=== PATIENT | male | born 1950 | race Hispanic/Latino ===

== ENCOUNTER 2017-07-25 01:02 | Observation (INO) | payer OTHER, MEDICARE ==
[~2017-07-25] VITALS: Ht 177.8 cm; Wt 88.5 kg
[2017-07-25] MEDS ORDERED: ONDANSETRON HCL 4 MG/2 ML VIAL ONE ×2 (01:34→17:36)
[2017-07-25] MEDS ORDERED: ASPIRIN 325 MG TABLET ONE (01:34)
[2017-07-25] MEDS ORDERED: HYDRALAZINE HCL 20 MG/ML VIAL ONE (01:34)
[2017-07-25] MEDS ORDERED: MORPHINE SULFATE 2 MG/ML 1ML SYG ONE ×2 (01:34→17:36)
[2017-07-25 01:37] LABS: BASOPHILS % (AUTO) 2.9 % (0.0-5.0); LYMPHOCYTES % (AUTO) 13.7 % (21.0-51.0); MEAN CORPUSCULAR HEMOGLOBIN 31.6 pg (27.0-33.0); MEAN CORPUSCULAR HGB CONC 34.2 g/dL (32.0-36.0); MEAN CORPUSCULAR VOLUME 92.5 fL (79-99); MONOCYTES % (AUTO) 5.6 % (3.0-13.0); NEUTROPHILS % (AUTO) 76.8 % (40.0-77.0); PLATELET COUNT (AUTO) 231 K/uL (130-400); RED BLOOD CELL COUNT(AUTO) 4.65 MIL/uL (4.50-6.20); RED CELL DISTRIBUTION WIDTH 13.3 % (11.0-15.5); WHITE BLOOD COUNT (AUTO) 8.4 K/uL (4.8-10.8)
[2017-07-25 01:51] LABS: CREATININE 1.2 mg/dL (0.5-1.5)
[2017-07-25 01:56] LABS: ALBUMIN 4.2 g/dL (3.5-5.0); BILIRUBIN,TOTAL 0.6 mg/dL (0.2-1.0); TOTAL PROTEIN, SERUM 8.2 g/dL (6.0-8.3)
[2017-07-25] MEDS ORDERED: LEVOFLOXACIN 750 MG/D5W 150 ML 150 ML ONE (02:40)
[2017-07-25] MEDS ORDERED: POTASSIUM CHLORIDE 20MEQ/100ML 100 ML IV PRN (07:30)
[2017-07-25] MEDS ORDERED: POTASSIUM CHLORIDE 10% ELIXIR 20 MEQ/15 ML UDCUP PO PRN (07:30)
[2017-07-25] MEDS ORDERED: LIDOCAINE HCL-MPF 1% 2ML VIAL IVP PRN (07:30)
[2017-07-25] MEDS ORDERED: HYDRALAZINE HCL 20 MG/ML VIAL IV PRN (07:30)
[2017-07-25] MEDS ORDERED: POTASSIUM CHLORIDE 20 MEQ ERTAB PO PRN (07:30)
[2017-07-25] MEDS ORDERED: ONDANSETRON HCL 4 MG/2 ML VIAL IV PRN (07:30)
[2017-07-25] MEDS ORDERED: MORPHINE SULFATE 4 MG/1ML SYG IV PRN (07:30)
[2017-07-25] MEDS ORDERED: SODIUM CHLORIDE 0.9% 1000ML 1,000 ML IV ONE (10:03)
[2017-07-25] MEDS ORDERED: NITROGLYCERIN 1GM/1 INCH PACKET TD ONE (10:03)
[2017-07-25] MEDS ORDERED: FAMOTIDINE/PF 20 MG/2 ML VIAL IV ONE (10:04)
[2017-07-25] MEDS ORDERED: METOPROLOL TARTRATE 25 MG TAB ONE (10:12)
[2017-07-25] MEDS ORDERED: INSULIN HUMULIN R 100 UNIT/ML 3ML ONE (10:13)
[2017-07-25] MEDS ORDERED: MEROPENEM 1 GM VIAL ONE (12:24)
[2017-07-25] MEDS ORDERED: MEROPENEM 1 GM VIAL IVP SCH (13:00)
[2017-07-25] MEDS ORDERED: ZOSYN 3.375GM+NS 50ML 50 ML IV SCH (13:00)
[2017-07-25 13:46] LABS: CREATINE KINASE MB 2.3 ng/mL (0.5-3.6); TROPONIN I 0.31 ng/mL (0.00-0.06)
[2017-07-25] MEDS ORDERED: IOPAMIDOL-370 100 ML VIAL IV ONE (14:02)
[2017-07-25] MEDS ORDERED: ASPIRIN 325MG EC TAB 325 MG TABLET.DR PO SCH (14:45)
[2017-07-25] MEDS: NITROGLYCERIN 1GM/1 INCH PACKET TD SCH ×2 (15:30→21:46)
[2017-07-25] MEDS: INSULIN HUMULIN R 100 UNIT/ML 3ML SQ SCH ×2 (16:30→20:42)
[2017-07-25] MEDS: FAMOTIDINE/PF 20 MG/2 ML VIAL IV SCH ×2 (17:38→20:15)
[2017-07-25] MEDS: METOPROLOL TARTRATE 25 MG TAB PO SCH ×2 (17:38→20:15)
[2017-07-25] MEDS: SODIUM CHLORIDE 0.9% 1000ML 1,000 ML IV SCH ×2 (17:39→20:15)
[2017-07-25 18:00] VITALS: BP 151/96
[2017-07-25] MEDS ORDERED: AMOX1TAB16 PO (18:59)
[2017-07-25] MEDS ORDERED: ATOR10 PO (18:59)
[2017-07-25] MEDS ORDERED: CLOP75TA32 PO (18:59)
[2017-07-25] MEDS ORDERED: PANT20TA12 PO (18:59)
[2017-07-25] MEDS ORDERED: AEC81 PO (18:59)
[2017-07-25] MEDS ORDERED: CILO100T PO (18:59)
[2017-07-25] MEDS ORDERED: METF10004 PO (18:59)
[2017-07-25] MEDS ORDERED: INSU100I21 SQ ×2 (18:59)
[2017-07-25] MEDS ORDERED: METO-408 PO (18:59)
[2017-07-25] MEDS ORDERED: LOSA100T29 PO (18:59)
[2017-07-25 19:06] VITALS: BP 164/98
[2017-07-25 20:17] LABS: CREATINE KINASE MB 2.2 ng/mL (0.5-3.6); TROPONIN I 0.32 ng/mL (0.00-0.06)
[2017-07-25] MEDS: MEROPENEM 1 GM VIAL IVP SCH (21:45)
[2017-07-25] MEDS: MORPHINE SULFATE 2 MG/ML 1ML SYG IV PRN (21:56)
[2017-07-25 23:10] VITALS: BP 133/81
[2017-07-26 03:01] VITALS: BP 138/86
[2017-07-26] MEDS: MORPHINE SULFATE 2 MG/ML 1ML SYG IV PRN (03:03)
[2017-07-26 03:56] LABS: HEMATOCRIT 40.7 % (42-54); MEAN CORPUSCULAR HEMOGLOBIN 32.2 pg (27.0-33.0); MEAN CORPUSCULAR HGB CONC 34.9 g/dL (32.0-36.0); MEAN CORPUSCULAR VOLUME 92.3 fL (79-99); PLATELET COUNT (AUTO) 236 K/uL (130-400); RED BLOOD CELL COUNT(AUTO) 4.41 MIL/uL (4.50-6.20); RED CELL DISTRIBUTION WIDTH 13.5 % (11.0-15.5); WHITE BLOOD COUNT (AUTO) 7.8 K/uL (4.8-10.8)
[2017-07-26 04:08] LABS: POTASSIUM 3.8 mmol/L (3.5-5.1)
[2017-07-26] MEDS: MEROPENEM 1 GM VIAL IVP SCH (05:25)
[2017-07-26] MEDS: NITROGLYCERIN 1GM/1 INCH PACKET TD SCH ×2 (05:26→17:52)
[2017-07-26] MEDS: INSULIN HUMULIN R 100 UNIT/ML 3ML SQ SCH (05:26)
[2017-07-26 07:42] VITALS: BP 143/81
[2017-07-26] MEDS ORDERED: ASPIRIN 81 MG EC TAB PO SCH (09:00)
[2017-07-26] MEDS ORDERED: CLOPIDOGREL BISULFATE 75 MG TAB PO SCH (09:00)
[2017-07-26] MEDS ORDERED: LOSARTAN 100 MG TABLET PO SCH (09:00)
[2017-07-26] MEDS ORDERED: ENOXAPARIN SODIUM 40 MG/0.4 ML SYRINGE SQ SCH (09:00)
[2017-07-26] MEDS ORDERED: CILOSTAZOL 100 MG TAB PO SCH (09:00)
[2017-07-26] MEDS ORDERED: METOPROLOL TARTRATE 25 MG TAB PO SCH (09:15)
[2017-07-26 11:38] VITALS: BP 155/89
[2017-07-26 17:43] VITALS: BP 193/118
[2017-07-26] MEDS: METOPROLOL TARTRATE 25 MG TAB PO SCH (17:51)
[2017-07-26 18:33] VITALS: BP 140/70
[2017-07-26] MEDS ORDERED: ATORVASTATIN CALCIUM 20 MG TABLET PO SCH (21:00)
[2017-07-27] MEDS ORDERED: INSULIN GLARGINE 100 UNITS/ML 10 ML VIAL SQ SCH (07:30)
== END 2017-07-26 19:21 | disposition home or self-care (01) ==
LOC: EDH 01:02 → EDHIP 03:30 → 2AH 17:56
PROVIDERS: ADMIT Internal Medicine; ATTEND Internal Medicine
DX: R07.89 Other chest pain (principal); I25.10 Atherosclerotic heart disease of native coronary artery without angina pectoris; E11.9 Type 2 diabetes mellitus without complications; I10 Essential (primary) hypertension; E78.5 Hyperlipidemia, unspecified; R10.11 Right upper quadrant pain; Z82.49 Family history of ischemic heart disease and other diseases of the circulatory system; Z95.1 Presence of aortocoronary bypass graft
CPT/HCPCS: 36415 ×2; 71046; 71275; 76705; 78227; 80048; 80053; 82550 ×3; 82553 ×2; 82948 ×5; 83874 ×2; 84484 ×3; 85025; 85027; 87804 ×2; 93005; 96372 ×2; 96374; 96375; 96376; 99291; A4218 ×2; A9537; G0378 ×40; J0360 ×2; J1650; J1815 ×2; J1956; J2185 ×3; J2405 ×2; J3490 ×2; J7030 ×3; Q9967

== ENCOUNTER → 2019-03-11 | Outpatient (CLI) | payer MEDICARE, OTHER ==
[~2019-03-11] MED LIST: AEC81 PO; ATOR10 PO; CILO100T PO; CLOP75TA32 PO; INSU100I21 SQ; LOSA100T58 PO; METF-446 PO; METO-408 PO; PANT20TA12 PO
== END | disposition home or self-care (01) ==
LOC: SHCH 09:24
PROVIDERS: ATTEND Internal Medicine Cardiovascular Disease
DX: I65.23 Occlusion and stenosis of bilateral carotid arteries (principal); I25.810 Atherosclerosis of coronary artery bypass graft(s) without angina pectoris
CPT/HCPCS: 93880

== ENCOUNTER → 2020-07-19 | Outpatient (CLI) | payer OTHER, MEDICARE ==
[~2020-07-19] MED LIST changes: -AEC81 PO; +ASPI-1197 PO; +CLIN300C10 PO; +DIAZ5TAB4 PO; +EMPA25TA PO; -INSU100I21 SQ; +INSU100V12 SQ; +METO-391 PO; +OMEP20TA25 PO; -PANT20TA12 PO; +TAMS-1 PO; +ZOLP5TAB8 PO
== END | disposition home or self-care (01) ==
LOC: SHCH 12:46
PROVIDERS: ATTEND Internal Medicine Cardiovascular Disease
DX: I65.23 Occlusion and stenosis of bilateral carotid arteries (principal); I35.8 Other nonrheumatic aortic valve disorders
CPT/HCPCS: 93306; 93356; 93880

== ENCOUNTER 2020-07-21 06:00 | Day surgery (SDC) | payer OTHER, MEDICARE ==
[2020-07-13 13:16] LABS: BASOPHILS % (AUTO) 0.6 % (0.0-5.0); EOSINOPHILS % (AUTO) 0.5 % (0.0-8.0); HEMATOCRIT 52.5 % (42-54); LYMPHOCYTES % (AUTO) 13.4 % (21.0-51.0); MEAN CORPUSCULAR HEMOGLOBIN 32.5 pg (27.0-33.0); MEAN CORPUSCULAR HGB CONC 33.9 g/dL (32.0-36.0); MEAN CORPUSCULAR VOLUME 95.8 fL (79-99); MONOCYTES % (AUTO) 6.2 % (3.0-13.0); NEUTROPHILS % (AUTO) 78.9 % (40.0-77.0); PLATELET COUNT (AUTO) 220 K/uL (130-400); RED BLOOD CELL COUNT(AUTO) 5.48 MIL/uL (4.50-6.20); RED CELL DISTRIBUTION WIDTH 13.6 % (11.0-15.5); WHITE BLOOD COUNT (AUTO) 8.3 K/uL (4.8-10.8)
[2020-07-13 13:31] LABS: POTASSIUM 4.8 mmol/L (3.5-5.1)
[2020-07-13 13:38] LABS: INR 1.09 (0.85-1.15); PROTHROMBIN TIME 11.6 SEC (9.6-11.6)
[2020-07-13 13:40] LABS: PARTIAL THROMBOPLASTIN TIME 31.3 SEC (26.3-35.5)
[2020-07-20 13:00] VITALS: BP 148/80
[~2020-07-21] VITALS: Ht 177.8 cm; Wt 77.2 kg
[2020-07-21] VITALS (14 sets, daily range): BP systolic 105–148; BP diastolic 56–85
[~2020-07-21 06:00] MED LIST changes: -CLIN300C10 PO; -METO-408 PO; -OMEP20TA25 PO
[2020-07-21] MEDS ORDERED: CEFAZOLIN SODIUM 1 GM VIAL ONE (06:13)
[2020-07-21] MEDS ORDERED: SODIUM CHLORIDE 0.9% 1000ML 1,000 ML IV ONE (06:13)
[2020-07-21] MEDS ORDERED: LIDOCAINE PF 2% 5ML ABBOJECT ONE (07:22)
[2020-07-21] MEDS ORDERED: PROPOFOL 10 MG/ML 20ML VIAL IV ONE (07:23)
[2020-07-21] MEDS ORDERED: ONDANSETRON HCL 4 MG/2 ML VIAL ONE (07:23)
[2020-07-21] MEDS ORDERED: MIDAZOLAM HCL 1 MG/ML 2ML VIAL ONE (07:23)
[2020-07-21] MEDS ORDERED: CEFAZOLIN SODIUM 1 GM VIAL IVP ONE (08:00)
[2020-07-21] MEDS ORDERED: LACTATED RINGERS 1000ML 1,000 ML IV SCH (08:00)
[2020-07-21] MEDS ORDERED: KETAMINE 50MG/ML SYRINGE 50 MG/ML DISP.SYRIN IV ONE (08:17)
[2020-07-21] MEDS ORDERED: BUPIVACAINE/PF 0.5% 10ML VIAL ONE (08:19)
[2020-07-21] MEDS ORDERED: LIDOCAINE HCL 1% 20 ML VIAL ONE (08:32)
[2020-07-21] MEDS ORDERED: EPHEDRINE SULFATE 50 MG/ML AMPULE ONE (08:42)
== END 2020-07-21 10:55 | disposition home or self-care (01) ==
LOC: DAH 06:00
PROVIDERS: ATTEND Orthopaedic Surgery
DX: M67.431 Ganglion, right wrist (principal); M65.4 Radial styloid tenosynovitis [de Quervain]; Z20.828 Contact with and (suspected) exposure to other viral communicable diseases; I10 Essential (primary) hypertension; E11.9 Type 2 diabetes mellitus without complications; Z79.899 Other long term (current) drug therapy; Z90.49 Acquired absence of other specified parts of digestive tract; Z83.3 Family history of diabetes mellitus; Z79.01 Long term (current) use of anticoagulants; Z95.1 Presence of aortocoronary bypass graft
CPT/HCPCS: 25000; 25111; 36415; 80048; 82948 ×2; 85025; 85610; 85730; 93005; A4215; A4221; A4222; A4223; A4452; A4649; A4663; A4930; A5120; A6223; A6260; C1713; C9803; J0690; J2001; J2250; J2405; J2704; J3490 ×3; J7030 ×2; U0003

== ENCOUNTER → 2021-11-22 | Outpatient (CLI) | payer OTHER, MEDICARE | END | disposition home or self-care (01) | LOC: OIH 07:39 | PROVIDERS: ATTEND Internal Medicine Cardiovascular Disease | DX: I25.10 Atherosclerotic heart disease of native coronary artery without angina pectoris (principal) | CPT/HCPCS: 93975 ==

== ENCOUNTER → 2022-06-07 | Outpatient (CLI) | payer OTHER, MEDICARE ==
[~2022-06-07] MED LIST changes: -CILO100T PO; +CILO100T3 PO
== END | disposition home or self-care (01) ==
LOC: SHCH 14:25
PROVIDERS: ATTEND Internal Medicine Cardiovascular Disease
DX: I70.202 Unspecified atherosclerosis of native arteries of extremities, left leg (principal); I10 Essential (primary) hypertension; I25.10 Atherosclerotic heart disease of native coronary artery without angina pectoris; Z89.511 Acquired absence of right leg below knee
CPT/HCPCS: 93925

== ENCOUNTER → 2023-01-22 | Outpatient (CLI) | payer OTHER, MEDICARE ==
[~2023-01-22] MED LIST changes: -LOSA100T58 PO; +LOSA100T59 PO
[2023-01-22 12:15] LABS: BASOPHILS % (AUTO) 0.6 % (0.0-5.0); MEAN CORPUSCULAR HEMOGLOBIN 31.3 pg (27.0-33.0); MEAN CORPUSCULAR HGB CONC 33.8 g/dL (32.0-36.0); MEAN CORPUSCULAR VOLUME 92.6 fL (79-99); MONOCYTES % (AUTO) 8.2 % (3.0-13.0); NEUTROPHILS % (AUTO) 66.9 % (40.0-77.0); PLATELET COUNT (AUTO) 245 K/uL (130-400); RED BLOOD CELL COUNT(AUTO) 4.86 MIL/uL (4.50-6.20); RED CELL DISTRIBUTION WIDTH 13.3 % (11.0-15.5); WHITE BLOOD COUNT (AUTO) 7.1 K/uL (4.8-10.8)
[2023-01-22 12:25] LABS: INR 0.94 (0.85-1.15); PROTHROMBIN TIME 10.9 SEC (9.6-11.6)
[2023-01-22 12:26] LABS: PARTIAL THROMBOPLASTIN TIME 32.2 SEC (26.3-35.5)
[2023-01-22 12:27] LABS: CREATININE 1.1 mg/dL (0.5-1.5); POTASSIUM 3.5 mmol/L (3.5-5.1)
== END | disposition home or self-care (01) ==
LOC: LAB 11:06
PROVIDERS: ATTEND Internal Medicine Cardiovascular Disease
DX: I10 Essential (primary) hypertension (principal); I73.9 Peripheral vascular disease, unspecified; E11.51 Type 2 diabetes mellitus with diabetic peripheral angiopathy without gangrene; I25.10 Atherosclerotic heart disease of native coronary artery without angina pectoris; Z95.1 Presence of aortocoronary bypass graft; Z79.82 Long term (current) use of aspirin; Z79.02 Long term (current) use of antithrombotics/antiplatelets; Z79.4 Long term (current) use of insulin; Z79.899 Other long term (current) drug therapy; R60.9 Edema, unspecified; Z89.411 Acquired absence of right great toe; Z79.01 Long term (current) use of anticoagulants
CPT/HCPCS: 36415; 80048; 85025; 85610; 85730

== ENCOUNTER → 2023-10-07 | Outpatient (CLI) | payer OTHER, MEDICARE ==
[~2023-10-07] MED LIST changes: +APIX5TAB PO; +ASCO500T20 PO; +BALS60OI TP; +CHLO50TA PO; -CLOP75TA32 PO; -DIAZ5TAB4 PO; +DILT-116 PO; +FERR-72 PO; +FURO40SO PO; +FURO40TA5 PO; +HUMALOG 75/25 SQ; +HUMLIS7525 SQ; +INSLAN SQ; -INSU100V12 SQ; +LEVO750T68 PO; +LORATADINE PO; -LOSA100T59 PO; +METO-408 PO; +MIRT7.5T11 PO; +OMEP20CA12 PO; +ONDA4TAB10 PO; +PANT40TA54 PO; +SPIR25TA PO; +SUCR1TAB2 PO; -ZOLP5TAB8 PO
[2023-10-07 16:49] LABS: ALBUMIN 2.9 g/dL (3.5-5.0); BILIRUBIN,TOTAL 0.5 mg/dL (0.2-1.0); CREATININE 0.8 mg/dL (0.5-1.3); MAGNESIUM 1.1 mg/dL (1.80-2.40); POTASSIUM 4.2 mmol/L (3.5-5.1); TOTAL PROTEIN, SERUM 7.6 g/dL (6.0-8.3)
== END | disposition home or self-care (01) ==
LOC: LAB 11:51
PROVIDERS: ATTEND Internal Medicine Cardiovascular Disease
DX: I70.203 Unspecified atherosclerosis of native arteries of extremities, bilateral legs (principal); I70.8 Atherosclerosis of other arteries; I87.2 Venous insufficiency (chronic) (peripheral); Z89.511 Acquired absence of right leg below knee
CPT/HCPCS: 36415; 80053; 83735; 83880; 93925; 93970

== ENCOUNTER → 2023-10-14 | Outpatient (CLI) | payer OTHER, MEDICARE ==
[~2023-10-14] MED LIST changes: -ASCO500T20 PO; -FERR-72 PO; -FURO40TA5 PO; -HUMLIS7525 SQ; -METO-408 PO; -MIRT7.5T11 PO; -PANT40TA54 PO; -SPIR25TA PO; -SUCR1TAB2 PO
== END | disposition home or self-care (01) ==
LOC: RAH 12:55
PROVIDERS: ATTEND Family Medicine
DX: L89.150 Pressure ulcer of sacral region, unstageable (principal); L02.91 Cutaneous abscess, unspecified; M79.89 Other specified soft tissue disorders; J84.10 Pulmonary fibrosis, unspecified; M47.815 Spondylosis without myelopathy or radiculopathy, thoracolumbar region; I25.10 Atherosclerotic heart disease of native coronary artery without angina pectoris; K57.90 Diverticulosis of intestine, part unspecified, without perforation or abscess without bleeding; Z90.49 Acquired absence of other specified parts of digestive tract
CPT/HCPCS: 74176

== ENCOUNTER 2023-10-16 08:40 | Day surgery (SDC) | payer OTHER, MEDICARE ==
[~2023-10-16] VITALS: Ht 180.3 cm; Wt 77.6 kg
[2023-10-16] VITALS (13 sets, daily range): BP systolic 100–150; BP diastolic 59–94; PULSE 80–94; RESP 15–16
[~2023-10-16 08:40] MED LIST changes: +INDOMETHACIN 100 MG SUPP.RECT RC ONE; +IOHEXOL-350 50ML VIAL IV ONE
[2023-10-16] MEDS ORDERED: FURO40TA5 PO (09:57)
[2023-10-16] MEDS ORDERED: HUMLIS7525 SQ (10:00)
[2023-10-16] MEDS ORDERED: METO-408 PO (10:01)
[2023-10-16] MEDS ORDERED: EMPA25TA PO (10:04)
[2023-10-16] MEDS ORDERED: SPIR25TA PO (10:04)
[2023-10-16] MEDS ORDERED: MIRT7.5T11 PO (10:06)
[2023-10-16] MEDS ORDERED: SUCR1TAB2 PO (10:06)
[2023-10-16] MEDS ORDERED: PANT40TA54 PO (10:07)
[2023-10-16] MEDS ORDERED: ASCO500T20 PO (10:07)
[2023-10-16] MEDS ORDERED: FERR-72 PO (10:08)
[2023-10-16] MEDS: 0.9%NACL 1000ML 1,000 ML IV ONE (10:48)
[2023-10-16] MEDS ORDERED: PROPOFOL 10 MG/ML 20ML VIAL IV ONE (11:55)
== END 2023-10-16 13:40 | disposition home or self-care (01) ==
LOC: ENDO 08:40 → DAH 08:40 → ENDO 13:40
PROVIDERS: ATTEND Internal Medicine Gastroenterology
DX: K80.30 Calculus of bile duct with cholangitis, unspecified, without obstruction (principal); R93.2 Abnormal findings on diagnostic imaging of liver and biliary tract; K86.9 Disease of pancreas, unspecified; I10 Essential (primary) hypertension; I25.10 Atherosclerotic heart disease of native coronary artery without angina pectoris; F41.9 Anxiety disorder, unspecified; E11.9 Type 2 diabetes mellitus without complications; K85.90 Acute pancreatitis without necrosis or infection, unspecified; K80.20 Calculus of gallbladder without cholecystitis without obstruction; D50.9 Iron deficiency anemia, unspecified; K44.9 Diaphragmatic hernia without obstruction or gangrene; I82.409 Acute embolism and thrombosis of unspecified deep veins of unspecified lower extremity; Z79.4 Long term (current) use of insulin; Z79.899 Other long term (current) drug therapy
CPT/HCPCS: 43264; 82948; 74328; 43275; 43259; J7030 ×2; J2704; Q9967; A4620; A4215 ×2; A4223; A7002; A4222; A4221; A4663; A4606; C1773; 74330; J3490

== ENCOUNTER → 2024-01-21 | Outpatient (CLI) | payer OTHER, MEDICARE ==
[~2024-01-21] MED LIST changes: +ASCO500T20 PO; -ASPI-1197 PO; -BALS60OI TP; -CHLO50TA PO; -DILT-116 PO; +FERR-72 PO; -FURO40SO PO; +FURO40TA5 PO; -HUMALOG 75/25 SQ; +HUMLIS7525 SQ; -INDOMETHACIN 100 MG SUPP.RECT RC ONE; -INSLAN SQ; +IOHEXOL 350 MG/ML 100ML INFUS..BTL IV ONE; -LEVO750T68 PO; -METO-391 PO; +METO-408 PO; +MIRT7.5T11 PO; -OMEP20CA12 PO; -ONDA4TAB10 PO; +PANT40TA54 PO; +SPIR25TA PO; +SUCR1TAB2 PO
== END | disposition home or self-care (01) ==
LOC: RAH 10:36
PROVIDERS: ATTEND Internal Medicine Cardiovascular Disease
DX: I73.9 Peripheral vascular disease, unspecified (principal); I70.1 Atherosclerosis of renal artery; N64.4 Mastodynia; I70.0 Atherosclerosis of aorta; R92.30 Dense breasts, unspecified
CPT/HCPCS: 75635; 77066; Q9967 ×2

== ENCOUNTER → 2024-03-31 | Outpatient (CLI) | payer OTHER, MEDICARE ==
[~2024-03-31] MED LIST changes: -IOHEXOL 350 MG/ML 100ML INFUS..BTL IV ONE; -IOHEXOL-350 50ML VIAL IV ONE
[2024-03-31 12:16] LABS: BASOPHILS # (AUTO) 0.04 K/uL (0.00-0.20); BASOPHILS % (AUTO) 0.6 % (0.0-5.0); EOSINOPHILS # (AUTO) 0.14 K/uL (0.00-0.70); EOSINOPHILS % (AUTO) 1.9 % (0.0-8.0); HEMATOCRIT 43.8 % (42-54); IMMATURE GRANULOCYTE ABSOLUTE 0.02 K/uL (0-1); LYMPHOCYTES # (AUTO) 1.8 K/uL (1.0-4.8); LYMPHOCYTES % (AUTO) 24.5 % (21.0-51.0); MEAN CORPUSCULAR HEMOGLOBIN 32.2 pg (27.0-33.0); MEAN CORPUSCULAR HGB CONC 34.5 g/dL (32.0-36.0); MEAN CORPUSCULAR VOLUME 93.4 fL (79-99); MONOCYTES # (AUTO) 0.5 K/uL (0.1-1.0); MONOCYTES % (AUTO) 7.4 % (3.0-13.0); NEUTROPHILS # (AUTO) 4.7 K/uL (1.8-7.7); NEUTROPHILS % (AUTO) 65.3 % (40.0-77.0); PLATELET COUNT (AUTO) 182 K/uL (130-400); RED BLOOD CELL COUNT(AUTO) 4.69 MIL/uL (4.50-6.20); RED CELL DISTRIBUTION WIDTH 14.6 % (11.0-15.5); WHITE BLOOD COUNT (AUTO) 7.2 K/uL (4.8-10.8)
[2024-03-31 12:25] LABS: CREATININE 1.3 mg/dL (0.5-1.3); POTASSIUM 3.9 mmol/L (3.5-5.1)
[2024-03-31 13:06] LABS: INR 1.06 (0.85-1.15); PROTHROMBIN TIME 11.4 SEC (9.6-11.6)
[2024-03-31 13:07] LABS: PARTIAL THROMBOPLASTIN TIME 31.4 SEC (26.3-35.5)
== END | disposition home or self-care (01) ==
LOC: LAB 10:47
PROVIDERS: ATTEND Internal Medicine Cardiovascular Disease
DX: I10 Essential (primary) hypertension (principal); I73.9 Peripheral vascular disease, unspecified; M79.662 Pain in left lower leg
CPT/HCPCS: 36415; 80048; 85025; 85610; 85730